=== PATIENT | female | born 1970 | race Hispanic/Latino ===

== ENCOUNTER 2018-11-12 05:29 | Observation (INO) ==
[2018-11-12] MEDS ORDERED: ZOFRAN IV ONE (05:36)
[2018-11-12] MEDS ORDERED: MORPHINE IV ONE (05:36)
[2018-11-12] MEDS ORDERED: NS 1,000 ML IV ONE ×2 (05:36→07:38)
[2018-11-12] MEDS ORDERED: ZOSYN 4.5 GM in NS 100 ML IV ONE ×2 (05:36→06:19)
[2018-11-12] MEDS ORDERED: TORADOL IV ONE (05:36)
--- NOTE | 2018-11-12 06:12 | PROVIDER DOCUMENTATION ---
HPI-Abdominal Pain/GI Problem - General Chief Complaint: Abdominal Pain Stated Complaint: AMBULANCE Time Seen by Provider: 11/12/18 05:33 Source: patient, EMS Allergies/Adverse Reactions: Patient Allergies Allergy/AdvReac Type Severity Reaction Status Date / Time No Known Allergies Allergy Verified 11/12/18 06:57 - History of Present Illness-ABD Nature of Presenting Problems: Sudden onset of severe LAP this evening, associated with N/V/D and hematochezia. Also has chills and body aches, but denies fever. has numbness/tingling to lips and hands and cramps in hands. EMS reported she seemed to lose consciousness several times en route, and that her BP was really low. has never felt this way before. 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 Abdominal Pain Onset Location: reports: RLQ, LLQ, suprapubic Pain Radiation: reports: no radiation Quality of Pain: reports: aching, cramping, sharp, stabbing Severity in ED: reports: severe Onset/Duration: reports: 4-6 hours ago Timing: reports: still present, constant Activities at Onset: reports: sleep Exposure to sick contacts?: Yes (possibly, at [place]) Modifying Factors: improves with: nothing Associated Symptoms: reports: diaphoresis, diarrhea, dizziness, fever/chills, joint pain, malaise, muscle aches, nausea, shortness of breath, vomiting Last BM: this morning Dark Stools Present?: reports: bright red blood Rectal Bleeding: reports: bloody diarrhea Rectal Pain: reports: none Emesis Description: reports: clear Bruising or Bleeding Gums?: No Similar Symptoms Previously?: No Recently seen or treated by another doctor?: No Review of Systems - Adult - REVIEW OF SYSTEMS - ADULT Constitutional: reports: see HPI, chills Eyes: reports: no symptoms reported Ears, Nose, Mouth & Throat: reports: no symptoms reported Cardiovascular: reports: no symptoms reported Respiratory: reports: see HPI, shortness of breath. denies: chronic cough, dyspnea on exertion, excessive sputum production, hemoptysis, pleurisy Gastrointestinal: reports: see HPI, abdominal pain, diarrhea, nausea, rectal bleeding, vomiting Genitourinary: reports: no symptoms reported Musculoskeletal: reports: no symptoms reported Integumentary: reports: no symptoms reported Neurological: reports: no symptoms reported Psychiatric: reports: no symptoms reported Endocrine: reports: no symptoms reported Hematologic/Lymphatic: reports: no symptoms reported Allergic/Immunologic: reports: no symptoms reported All Other Systems: Reviewed and Negative Past History - Adult - PAST MEDICAL HISTORY-ADULT Review of Records: reports: Old Records Reviewed, Nursing Assessment Review, M edications Reviewed, Social history reviewed & non-contributory. Major Childhood Illnesses: reports: denies history Cardiovascular: reports: denies history Respiratory: reports: denies history Gastrointestinal: reports: denies history Obstetrical/Gynecological: reports: denies history Genitourinary: reports: denies history Musculoskeletal: reports: denies history Neurological: reports: denies history Endocrine/Immune: reports: denies history Other Conditions: reports: denies history - PRIOR SURGERIES/PROCEDURES Surgical/Procedure History: reports: BTL - IMMUNIZATION STATUS Childhood Immunizations: UTD Flu Vaccine: UTD - FAMILY HISTORY Family History: reviewed, not pertinent - SOCIAL HISTORY Smoking: non-smoker Substance Use: none/never Alcohol Use Frequency: never Living Situation: family Physical Exam-General - PHYSICAL EXAM-ADULT Initial Vital Signs Reviewed: Yes (VSSAF) - CONSTITUTIONAL General Appearance: alert, moderate distress, anxious, other (hyperventilating) - EYES Eyes: PERRL/EOMI, pink conjunctivae - HEAD, EARS, NOSE, MOUTH & THROAT HENMT: normocephalic/atraumatic, normal ENT inspection, pharynx normal, other (dry mucous membranes) - NECK Neck: non-tender, full range of motion, supple, normal inspection - RESPIRATORY Respiratory: chest non-tender, lungs clear, normal breath sounds, no pleuratic chest pain, no respiratory distress, no accessory muscle use - CARDIOVASCULAR Cardiovascular: normal peripheral pulses, regular rate, rhythm, no edema, no gallop, no JVD, no murmur - GASTROINTESTINAL (ABDOMEN) Abdominal Exam: soft, no organomegaly, no pulsatile mass, abnormal bowel sounds (hyperactive), tenderness (suprapubic, bilateral lower quadrant) - GENITOURINARY Rectal Exam: normal exam, other (heme negative stool) - LYMPHATIC Lymphatic: no adenopathy - MUSCULOSKELETAL Back Exam: normal inspection, no CVA tenderness, no vertebral tenderness Extremity: normal range of motion, non-tender, normal inspection, no pedal edema , no calf tenderness, normal capillary refill - SKIN Integumentary: normal color, normal turgor, warm/dry - NEUROLOGIC 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, grossly normal, no motor/sensory deficits - PSYCHIATRIC Psych/Mental Status: normal thought content, normal thought process, oriented x 3, anxious Progress - PLAN OF CARE/RESULTS Progress/Plan/Lab Results: Vital Signs - 8 hr 11/12/18 05:34 Temperature 97.6 F Pulse Rate 82 Respiratory Rate 18 Blood Pressure 105/69 O2 Sat by Pulse Oximetry 100 Orders Category Date Time Status Finger Stick Blood Sugar (ED) DIRECTED Care 11/12/18 05:33 Active Nursing- Obtain EKG once Care 11/12/18 05:34 Active Saline Loc NOW Care 11/12/18 05:34 Active Straight Catheterization ORDERED Care 11/12/18 05:36 Active CHEST-PORTABLE [RAD] Stat Exams 11/12/18 05:[address] ABD/PELVIS W/IV CONT ONLY [CT] Stat Exams 11/12/18 05:35 Ordered AMYLASE [CHEM] Stat Lab 11/12/18 05:39 Received BLOOD CULTURE [BLDCUL] Stat Lab 11/12/18 05:34 Ordered C DIFF TOXIN [STOOL] Stat Lab 11/12/18 05:59 Ordered CBC WITH ELECTRONIC DIFF [HEME] Stat Lab 11/12/18 05:39 Results COMPREHENSIVE METABOLIC PANEL [CHEM] Stat Lab 11/12/18 05:39 Received LACTATE, PLASMA [CHEM] Stat Lab 11/12/18 05:39 Received LIPASE [CHEM] Stat Lab 11/12/18 05:39 Received MAGNESIUM [CHEM] Stat Lab 11/12/18 05:39 Received OCCULT BLOOD SCREEN STOOL PL Stat Lab 11/12/18 05:57 Ordered PRO B-NATRIURETIC PEPTIDE Stat Lab 11/12/18 05:46 Received PROTIME WITH INR [COAG] Stat Lab 11/12/18 05:39 Received STOOL CULTURE [RM] Routine Lab 11/12/18 05:58 Ordered TROPONIN T Stat Lab 11/12/18 05:[address] W/POSS RFLX CULT [URINALYSIS] Stat Lab 11/12/18 05:59 Ordered 0.9% Sodium Chloride Inj [Ns] 1,000 ml Med 11/12/18 05:36 Active IV 999 mls/hr Ketorolac [Toradol] Med 11/12/18 05:36 Discontinued 30 mg IV NOW ONE Morphine Med 11/12/18 05:36 Discontinued 4 mg IV NOW ONE Ondansetron [Zofran] Med 11/12/18 05:36 Discontinued 4 mg IV NOW ONE Piperacillin/Tazobactam [Zosyn] 4.5 gm Med 11/12/18 05:36 Active 0.9% Sodium Chloride Inj [Ns] 100 ml IV NOW EKG [EKG] Stat Ther 11/12/18 05:34 Ordered Result Diagrams: 11/12/18 05:39 11/12/18 05:39 - REASSESSMENT Reassessment #1 Time Reassessed: 06:27 Status: improving (Given IVF, morphine/ zofran for pain, IV zosyn for possible colitis. Awaiting CT and labs) Reassessment #2 Time Reassessed: 09:17 Status: unchanged (MILD DKA, pH 7.33, ACALCULOUS CHOLECYTITIS, ALSO C/O EAR PAIN AND HEADACHE. 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 REPORTS NEWLY DIAGNSOSED DM: NO PCP AND NO DIABETIC TREATMENT SO FAR.) - EKG 1 Time of EKG reading by physician:: 06:26 EKG Read and Signed by:: Jose Francisco Marsh EKG Interpretation (*Must complete 3 of following elements*): Normal Rate: 72 Rhythm: nsr [place]: normal QRS: normal [place] Interval: normal ST Wave: normal - CHANGE OF SHIFT REPORT (ED Provider) 1 Report Given and Care Transferred to:: Dr. Adorno Time of Transfer: 07:00 Items Pending: Labs, CT/MRI Results Departure - Departure Date of Disposition Decision: 11/12/18 Time of Disposition Decision: 09:25 DIAGNOSIS: Abdominal pain, Nausea vomiting and diarrhea, Acute acalculous cholecystitis, DKA (diabetic ketoacidoses), Lactic acidosis Disposition: ADMITTED INPATIENT 09 Certified Medical Emergency: Emergent Condition: Stable Referrals and Follow-Ups: None,PCP [Primary Care Provider] - - Critical Care Note This patient required my direct & personal management of CC.: No Attestation - Physician/ HERO Attestation Patient care was provided by Advanced Practice Provider:: No The physician spent face to face time with patient:: Yes Advanced Practice Provider documentation review:: Supervising physician onsite and consulted in the evaluation and care of this patient. The physician did have a face to face encounter with the patient.
[2018-11-12 06:15] LABS: OCCULT BLOOD 1 NEGATIVE (NEGATIVE)
[2018-11-12 06:15] LABS: AGAP 13; ALBUMIN 3.9 g/dL (3.5-5.0); ALKALINE PHOSPHATASE 91 U/L (32-104); AMYLASE 42 U/L (20-200); BUN 14 mg/dL (8-22); CALCIUM 8.8 mg/dL (8.8-10.2); CHLORIDE 102 mmol/L (98-107); COSMO 287; CREATININE 0.7 mg/dL (0.5-0.9); ESTIMATED GFR > 60; GLUCOSE 232 mg/dL (70-104); GOT 35 U/L (10-30); GPT 45 U/L (10-36); LIPASE 59 U/L (13-60); MAGNESIUM 1.7 mg/dL (1.5-2.7); POTASSIUM 3.4 mmol/L (3.5-5.1); SODIUM 140 mmol/L (136-145); TCO2 25 mmol/L (25-35); TOTAL PROTEIN 6.6 g/dL (6.3-8.3)
[2018-11-12 06:28] LABS: INR 0.97; PROTIME 13.4 Seconds (11.0-16.0)
[2018-11-12 06:34] LABS: EOS# 0.07 X1000 (0.0-0.7); HEMATOCRIT 40.8 % (37.0-47.0); HEMOGLOBIN 13.4 g/dL (12.0-16.0); LYMPH% 68.8 % (20.5-51.1); MCHC 33.4 g/dL (33-37); MCV 83.6 FL (81-99); MONO# 0.21 X1000 (0.11-0.59); MONO% 3.5 % (1.7-9.3); MPV 9.1 FL (7.4-10.4); NEUT# 1.57 X1000 (1.4-6.5); NEUT% 26.3 % (42.2-75.2); PLT 400 X1000 (130-400); RBC 4.83 XMIL (4.2-5.4); RDW 14.9 % (11.5-14.5); WBC 5.96 X1000 (4.8-10.8)
[2018-11-12 07:03] LABS: URINE BACTERIA NEGATIVE /HFP; URINE EPITHELIAL CELLS <10 /HPF (<10); URINE RBC <10 /HPF (<10); URINE SOURCE CATH; URINE WBC <10 /HPF (<10)
[2018-11-12 07:04] LABS: BILIRUBIN URINE NEGATIVE (NEGATIVE); BLOOD URINE NEGATIVE (NEGATIVE); CLARITY CLEAR (CLEAR); COLOR YELLOW; KETONE URINE 1+(Small) mg/dL (NEGATIVE); LEUKOCYTES URINE TRACE (NEGATIVE); NITRITE URINE NEGATIVE (NEGATIVE); PH URINE 6.5; UROBILINOGEN URINE NORMAL
--- NOTE | 2018-11-12 07:23 | Diag Imaging Result Doc PS360 ---
EXAM: CT ABD/PELVIS W/IV CONT ONLY HISTORY: colitis TECHNIQUE: CT abdomen and pelvis with intravenous contrast COMPARISON: None. FINDINGS: There is fatty infiltration of the liver. The gallbladder is distended. No calcified stones. Normal pancreas, spleen, adrenal glands, and kidneys. No hydronephrosis. Normal aorta. Normal appendix. No abscess. No inflammation about the colon. No colonic wall thickening. There are small fibroids within the uterus. The largest measures approximately 3.2 cm. Neither ovary is enlarged. Urinary bladder is not distended. IMPRESSION: 1.No CT evidence of colitis 2.Uterine fibroids 3.There is fatty infiltration of the liver 4.Distended gallbladder. A gallbladder ultrasound is recommended if there is clinical suspicion for cholecystitis. This exam was performed using automated exposure control, adjustment of mA or kV according to patient size, and/or use of iterative reconstruction technique. Electronically signed by Moreno Diallo 11/12/2018 7:21 AM
--- NOTE | 2018-11-12 07:29 | EKG Report ---
Test Performed on : 11/12/2018 06:20:50 AM Test Reason : sob Blood Pressure : / mmHG Vent. Rate : 072 BPM Atrial Rate : 072 BPM P-R Int : 130 ms QRS Dur : 078 ms QT Int : 430 ms P-R-T Axes : 010 074 047 degrees QTc Int : 470 ms Normal sinus rhythm. Normal ECG No previous ECGs available Unconfirmed Result
--- NOTE | 2018-11-12 07:35 | Diag Imaging Result Doc PS360 ---
EXAM: CHEST-PORTABLE HISTORY: lower abdominal pain, SOB TECHNIQUE: Chest single view COMPARISON: None. FINDINGS: The lungs are well expanded. The heart is not enlarged. The vessels are not distended. There are no infiltrates. No effusion identified. IMPRESSION: Negative exam. Electronically signed by Moreno Diallo 11/12/2018 7:33 AM
[2018-11-12] MEDS ORDERED: KLOR-CON PO ONE (07:38)
[2018-11-12 08:16] LABS: BLOOD TYPE ARTERIAL; SAMPLE BLOOD
[2018-11-12 08:17] LABS: BE -2.4 mmoll (-3.0-3.0); METHB 1.2 % (0.0-1.5); O2(CT) 16.5 mL/dL (15.0-23.0); O2HB 94.3 % (95.0-99.0); PCO2(98.6) 45 mmHg (35-45); PO2(98.6) 78 mmHg (60-100); SAO2 97.8 % (95.0-100.0); THB 12.4 g/dL (11.5-17.4); pH(98.6) 7.33 (7.35-7.45)
--- NOTE | 2018-11-12 08:19 | Diag Imaging Result Doc PS360 ---
EXAM: US GB < RUQ (LIMITED) HISTORY: ruq pain TECHNIQUE: Right upper quadrant ultrasound COMPARISON: CT from 7:12 AM FINDINGS: Normal pancreas. No aortic aneurysm. Normal inferior vena cava. There is fatty infiltration of the liver. Normal right kidney. No hydronephrosis. The gallbladder is distended. The pericholecystic fluid with thickening of the wall. No stones. IMPRESSION: Distended gallbladder with pericholecystic fluid/thickening of the wall suspicious for acalculous cholecystitis. Electronically signed by Moreno Diallo 11/12/2018 8:17 AM
[2018-11-12 08:21] LABS: ALLEN TEST YES; MODALITY ROOM AIR
[2018-11-12] MEDS ORDERED: NS + KCL 20 MEQ 1,000 ML IV ONE (09:23)
[2018-11-12] MEDS ORDERED: ROCEPHIN 1 GM in NS 50 ML IV ONE (09:24)
[2018-11-12 11:50] LABS: HEMOGLOBIN A1C 9.1 % (4.8-6.0)
--- NOTE | 2018-11-12 12:18 | HISTORY AND PHYSICAL ---
PRIMARY CARE PHYSICIAN: None. CHIEF COMPLAINT: Severe right and left lower quadrant and suprapubic abdominal pain, along with some right upper quadrant abdominal pain with associated nausea/vomiting, diarrhea, and hematochezia. HISTORY OF PRESENTING ILLNESS: This is a 48-year-old female, who presents to [facility] ER, but does not speak Beninese. Her is at the bedside and is interpreting for her. States that she has been having severe right and left lower quadrant abdominal pain, suprapubic abdominal pain, and right upper quadrant abdominal pain that began last night with some associated nausea/vomiting, diarrhea, hematochezia, chills, and body aches. She came by EMS, who state that she lost consciousness several times en route and that her blood pressure was low. When she arrived, her blood pressure was 105/69. Her workup showed negative stool for occult blood, negative C difficile. She did have a bump in her blood sugar at 232 with no previous history of diabetes. Her acetone level was negative. She had a CT of the abdomen and pelvis that showed a distended gallbladder, and a gallbladder ultrasound was recommended. We did the right upper quadrant abdominal ultrasound. That showed a distended gallbladder with reno cholecystic fluid and thickening of the wall suspicious for an acalculous cholecystitis so she will be admitted to the [facility] for further evaluation and treatment and surgical consultation. PAST MEDICAL HISTORY: None. PAST SURGICAL HISTORY: A bilateral tubal ligation. FAMILY HISTORY: Reviewed and noncontributory. SOCIAL HISTORY: She currently lives with family. Denies any tobacco, alcohol, or illicit drug use. ALLERGIES: No known allergies. HOME MEDICATIONS: She does not take any medications on a routine basis. DIAGNOSTIC STUDIES: Laboratory data showed a white blood cell count of 5.96, hemoglobin 13.4, hematocrit 40.8, platelets 400,000. PT 13.4, INR 0.97. ABG with a pH of 7.33, pCO2 of 45, PO2 of 78, bicarbonate 23 on room air. Sodium 140, potassium 3.4, chloride 102, CO2 of 25, BUN of 14, creatinine 0.7, glucose of 232. Magnesium 1.7. Troponin was negative. ProBNP of 28. Amylase of 42, lipase 59. Plasma lactate of 2.4. Urinalysis was negative. Stool for occult blood was negative. Stool for Clostridium difficile toxin was negative. Acetone level was negative. CT of the abdomen and pelvis showed no CT evidence of colitis. Uterine fibroids. There was a fatty infiltration of the liver and a distended gallbladder and a gallbladder ultrasound was recommended if suspicion for cholecystitis. We did a right upper quadrant abdominal ultrasound that showed a distended gallbladder with pericholecystic fluid and thickening of the wall suspicious for acalculous cholecystitis. Chest x-ray showed a negative exam. EKG showed normal sinus rhythm. REVIEW OF SYSTEMS: She denied any fever. She was positive for chills, body aches. Denied any chest pain, coughing, shortness of breath. She had right and left lower quadrant and suprapubic abdominal pain and right upper quadrant abdominal pain with nausea/vomiting, diarrhea, and hematochezia. She denied any burning or hurting with urination. PHYSICAL EXAMINATION: VITAL SIGNS: On arrival she had a temperature of 97.6 degrees, pulse 82, respirations 18, blood pressure 105/69, saturating 100% on room air. GENERAL: This is a 48-year-old female, lying in the bed. Again does not speak any Beninese, but her was at the bedside to translate. HEMNT: Normocephalic, atraumatic. Normal ENT inspection. Oropharynx and nares are clear. EYES: Pupils are equal, round, and reactive to light and accommodation. Extraocular movements are intact. NECK: Normal inspection. Normal range of motion. LUNGS: Clear to auscultation bilaterally with equal lung expansion and chest wall movement. HEART: With regular rate and rhythm. No murmurs, rubs, or gallops. ABDOMEN: Soft. Tenderness to bilateral lower quadrants, right upper quadrant. Bowel sounds are present x4 quadrants. MUSCULOSKELETAL: She had 5/5 strength x4 extremities. NEUROLOGICAL: The cranial nerves 2-12 appear grossly intact. ASSESSMENT: 1. Acalculous cholecystitis. 2. New onset of diabetes, type 2. PLAN: She will be transferred to the [facility]. Placed on telemetry. She will be held n.p.o. We will consult General Surgery. Place her on patterned blood sugars with sliding scale insulin. We are checking a hemoglobin A1c; those results are pending. Normal saline at 125 mL an hour. Morphine 4 mg IV q.4 h. p.r.n. Urine culture is pending. We will apply SCDs for DVT prophylaxis. Further orders after seen by attending and consultants. Dictated by ROMIE Diez for Aayush Vincent MD cc: ROMIE Diez MD
[2018-11-12] MEDS ORDERED: ZOFRAN IV PRN (13:09)
[2018-11-12] MEDS: NS 1,000 ML IV SCH ×2 (14:32→23:01)
[2018-11-12] MEDS: HUMALOG SUBQ SCH ×2 (16:53→22:49)
--- NOTE | 2018-11-12 21:38 | GENERAL SURGERY CONSULTATION ---
DATE: 11/12/2018 REASON FOR CONSULTATION: Acalculous cholecystitis. HISTORY OF PRESENT ILLNESS: This is a 48-year-old female who was awakened acutely this morning at 4 a.m. with right upper abdominal pain that radiated around into her back. This has been persistent throughout the day. However, currently it is not hurting as bad. She is having some epigastric pain. It has been relieved some with medicine in the hospital. No exacerbating factors. She has not tried to eat anything. She has had no similar episodes in the past. She did report some nausea and vomiting this morning. No fever or chills. No diarrhea or constipation. She also does note some dysuria. PAST MEDICAL HISTORY: Diabetes. HOME MEDICATIONS: None. ALLERGIES: No known drug allergies. PAST SURGICAL HISTORY: Bilateral tubal ligation. FAMILY HISTORY: Her sister had gallbladder disease. Otherwise unremarkable. SOCIAL HISTORY: Negative for tobacco, alcohol or illicit drug use. REVIEW OF SYSTEMS: Ten systems reviewed and negative except as noted above in HPI. PHYSICAL EXAMINATION: Vital Signs: Temperature 99.1 degrees, pulse 67, respirations 18, blood pressure 119/57. General: She is a well-developed, well-nourished female in no distress who looks her stated age. Neuro: Alert, oriented x4. Cranial nerves 2-12 grossly intact. Moves all extremities equally and well. HEENT: Normocephalic, atraumatic. Extraocular muscles intact. Pupils equal, round, reactive to light. Sclerae anicteric. Moist mucous membranes. Neck: Supple. No thyromegaly. CV: Regular rate and rhythm. Respiratory: Bilateral equal breath sounds. Gastrointestinal: Soft, nondistended. No organomegaly or mass. She has mild tenderness in her right abdomen with palpation on her left abdomen. No rebound or guarding. No hernias appreciated. Extremities: No clubbing, cyanosis, or edema. Skin: Warm and dry. No rash. LABORATORY: White blood cell count normal, hemoglobin and hematocrit normal. Electrolytes reviewed, notable for glucose of 232, AST 35, ALT 45, alkaline phosphatase 91, total bilirubin 0.7, amylase 42, lipase 59. Serum lactate 1.7. Urinalysis noted for 3+ protein, 1+ ketones, trace white blood cells, negative bacteria, negative nitrite. Stool occult blood is negative. C difficile toxin in the stool was negative. IMAGING: Abdominal and pelvis CT scan revealed a distended gallbladder. However, there was no obvious pericholecystic fluid or wall thickening or stones. There was no biliary ductal dilation. ASSESSMENT/PLAN: Abdominal pain of unclear etiology. It could be biliary colic secondary to biliary dyskinesia. I do not think she has true acalculous cholecystitis as she is nontoxic and does not have any risk factors. We will check a HIDA scan tomorrow if she continues to have symptoms. I will let her have clear liquids tonight. If she significantly improves overnight we may consider discharge and outpatient followup with a HIDA scan. cc: Carl Jones MD MTDD
--- NOTE | 2018-11-12 21:49 | HISTORY AND PHYSICAL ---
ADDENDUM: Patient seen and examined by myself. Full note dictated and discussed with nurse practitioner. Patient presented to the hospital with abdominal pain, diagnosed with acalculous cholecystitis. She does have new onset diabetes. We will need to adjust her blood sugar control. Given her gallbladder disease, we are going to admit her to the hospital, transfer her to [facility] and ask Surgery to evaluate and treat. Further orders as needed. cc: Aayush Vincent MD
[2018-11-13] MEDS: MORPHINE IV PRN ×2 (04:52→10:02)
[2018-11-13 06:13] LABS: BASO# 0.01 X1000 (0.0-0.2); BASO% 0.2 % (0.0-0.8); EOS# 0.13 X1000 (0.0-0.7); HEMATOCRIT 33.3 % (37.0-47.0); HEMOGLOBIN 10.7 g/dL (12.0-16.0); LYMPH# 1.91 X1000 (1.2-3.4); LYMPH% 29.6 % (20.5-51.1); MCH 27.4 PG (27-31); MCHC 32.1 g/dL (33-37); MCV 85.4 FL (81-99); MONO# 0.26 X1000 (0.11-0.59); MPV 9.4 FL (7.4-10.4); NEUT# 4.15 X1000 (1.4-6.5); NEUT% 64.2 % (42.2-75.2); PLT 272 X1000 (130-400); WBC 6.46 X1000 (4.8-10.8)
[2018-11-13 06:24] LABS: AGAP 7; ALB/GLOB RATIO 1.3; ALBUMIN 3.3 g/dL (3.5-5.0); ALKALINE PHOSPHATASE 66 U/L (32-104); BUN 10 mg/dL (8-22); CALCIUM 7.4 mg/dL (8.8-10.2); CHLORIDE 110 mmol/L (98-107); COSMO 284; CREATININE 0.4 mg/dL (0.5-0.9); ESTIMATED GFR > 60; GLUCOSE 163 mg/dL (70-104); GOT 25 U/L (10-30); GPT 38 U/L (10-36); POTASSIUM 3.8 mmol/L (3.5-5.1); SODIUM 141 mmol/L (136-145); TCO2 24 mmol/L (25-35); TOTAL BILIRUBIN 0.55 mg/dL (0.20-1.00); TOTAL PROTEIN 5.8 g/dL (6.3-8.3)
[2018-11-13] MEDS: HUMALOG SUBQ SCH ×4 (06:44→22:37)
[2018-11-13] MEDS ORDERED: PNEUMOVAX 23 IM ONE (08:01)
--- NOTE | 2018-11-13 08:50 | GENERAL SURGERY PROGRESS NOTE ---
DATE: 11/13/2018 SUBJECTIVE: The patient reports some epigastric pain and sort of substernal tightness with mild nausea. She did drink clear liquids last night without any apparent problems. OBJECTIVE: Vital Signs: She is afebrile. Vital signs are stable. General: She is awake, alert, no acute distress. Gastrointestinal: Soft, nondistended. She is tender in the epigastrium and right upper quadrant without rebound or guarding. No organomegaly or mass appreciated. LABORATORY: CBC and metabolic profile reviewed and unremarkable. ASSESSMENT AND PLAN: A 48-year-old female with upper abdominal pain and nausea, possible acalculous cholecystitis. We will pursue a HIDA scan today to check for cystic duct patency and possibly severe biliary dyskinesia. If either one is positive, then we would proceed with laparoscopic cholecystectomy this admission. However, if she has a patent cystic duct, and normal ejection fraction, we will continue observation today and allow her to eat to see how she feels. In my opinion, the ultrasound and CT findings are marginal for acalculous cholecystitis. cc: Carl Jones MD
[2018-11-13] MEDS: NS 1,000 ML IV SCH (10:05)
--- NOTE | 2018-11-13 12:18 | PROGRESS NOTE ---
DATE: 11/13/2018 SUBJECTIVE: The patient reports feeling much better. Denies any fever or chills. OBJECTIVE: Vital Signs: Temperature 98.4 degrees, heart rate 61, respiratory rate 18, blood pressure 117/62, O2 saturation 97% on room air. General: This is a 48-year-old female, lying in bed, in no acute distress. Cardiovascular: S1, S2 heard. No murmurs, gallops, or rubs. Regular rate and rhythm. Respiratory: Clear bilaterally to auscultation. No work of breathing or using accessory muscles. Abdomen: Soft. Mildly tender to palpation in the right upper quadrant but there is no rebound or Green's sign. No signs of peritoneal irritation. Extremities: No clubbing, cyanosis, or edema. Peripheral pulses present in both legs. Neurological: Patient alert, oriented x3. Moves 4 extremities. LABORATORY DATA: Reviewed. ASSESSMENT AND PLAN: 1. Acalculous cholecystitis. Patient has been evaluated by General Surgery. They are ordering a HIDA scan to confirm if there is any biliary dyskinesia and if that is the case patient will need to have cholecystectomy. If not they will continue to monitor. At this point, we will follow recommendations. We will continue with IV fluids and pain medication as well. 2. New onset diabetes mellitus type 2. We will continue with sliding scale insulin. Accu-Chek before meals and also at bedtime. Hemoglobin A1c is elevated. We will continue to monitor. cc: Fab Ruby MD
[2018-11-13] MEDS ORDERED: VANCOMYCIN IV PER PHARMACY MISC SCH (15:15)
[2018-11-13] MEDS ORDERED: VANCOMYCIN 1.5 GM in NS 250 ML IV SCH (17:00)
--- NOTE | 2018-11-13 18:37 | Diag Imaging Result Doc PS360 ---
EXAM: HIDA SCAN W/ EJECTION FRACTION HISTORY: abdominal pain, possible acalculous cholecystitis TECHNIQUE: Nuclear medicine HIDA scan with gallbladder ejection fraction COMPARISON: None. FINDINGS: 5.3 mCi Choletec administered. There is normal uptake within the liver. Normal filling of the gallbladder. Normal emptying into the small bowel. Ensure was given to determine the gallbladder ejection fraction. There is no appreciable emptying at 60 minutes. IMPRESSION: Abnormal exam with no appreciable emptying at 60 minutes. Electronically signed by Moreno Diallo 11/13/2018 6:35 PM
--- NOTE | 2018-11-13 21:04 | GENERAL SURGERY PROGRESS NOTE ---
DATE: 11/13/2018 SUBJECTIVE: This evening the patient reports some left upper quadrant pain that also is in her left back, and radiates around to the right side of her back. It is not severe, but has remained throughout most of the day. She has had a little nausea, no vomiting. During her HIDA scan test she did have pain that was reproduced as described above. OBJECTIVE: Her vital signs are unchanged and essentially normal. Physically, her abdomen is soft and minimally tender. IMAGING: Her HIDA scan showed a 0% ejection fraction after 60 minutes. ASSESSMENT AND PLAN: A 48-year-old female with severe biliary dyskinesia, essentially an akinetic gallbladder. This is almost certainly the cause of her current symptoms. We recommend laparoscopic cholecystectomy with cholangiogram tomorrow. I went over the risks and benefits with her including bleeding, infection, injury to surrounding organs such as the intestines or bile duct and other imponderables. She understands and agrees to proceed. cc: Carl Jones MD
[2018-11-14] MEDS: NS 1,000 ML IV SCH (00:14)
[2018-11-14 05:56] LABS: BASO# 0.01 X1000 (0.0-0.2); BASO% 0.2 % (0.0-0.8); EOS# 0.16 X1000 (0.0-0.7); EOS% 2.9 % (0.0-10.0); HEMATOCRIT 33.8 % (37.0-47.0); LYMPH% 39.9 % (20.5-51.1); MCH 27.5 PG (27-31); MCHC 32.5 g/dL (33-37); MCV 84.5 FL (81-99); MONO# 0.37 X1000 (0.11-0.59); MONO% 6.7 % (1.7-9.3); MPV 9.3 FL (7.4-10.4); NEUT# 2.78 X1000 (1.4-6.5); NEUT% 50.3 % (42.2-75.2); PLT 271 X1000 (130-400); RDW 14.7 % (11.5-14.5); WBC 5.52 X1000 (4.8-10.8)
[2018-11-14 06:30] LABS: AGAP 10; ALB/GLOB RATIO 1.2; ALBUMIN 3.4 g/dL (3.5-5.0); ALKALINE PHOSPHATASE 67 U/L (32-104); BUN 7 mg/dL (8-22); CALCIUM 8.4 mg/dL (8.8-10.2); CHLORIDE 106 mmol/L (98-107); COSMO 281; CREATININE 0.5 mg/dL (0.5-0.9); ESTIMATED GFR > 60; GLUCOSE 125 mg/dL (70-104); GOT 24 U/L (10-30); GPT 37 U/L (10-36); POTASSIUM 3.7 mmol/L (3.5-5.1); SODIUM 141 mmol/L (136-145); TCO2 25 mmol/L (25-35); TOTAL BILIRUBIN 0.39 mg/dL (0.20-1.00); TOTAL PROTEIN 6.3 g/dL (6.3-8.3)
[2018-11-14] MEDS: HUMALOG SUBQ SCH (07:03)
[2018-11-14] MEDS ORDERED: KEFZOL 1 GM/D5W 1 GM/50 ML IVPB IV ONE (07:42)
[2018-11-14] MEDS ORDERED: SENSORCAINE 0.25%/EPI 1:200,000 ONE (07:56)
[2018-11-14] MEDS ORDERED: SODIUM CHLORIDE 0.9% ONE ×2 (07:56→09:46)
[2018-11-14] MEDS ORDERED: LR 1,000 ML ONE (07:57)
--- NOTE | 2018-11-14 08:01 | GENERAL SURGERY PROGRESS NOTE ---
DATE: 11/14/2018 SUBJECTIVE: She has a little pain in her abdomen but otherwise is doing fine overnight. OBJECTIVE: She is afebrile. Vital signs are stable. General: She is awake, alert, and oriented x3. No acute distress. Gastrointestinal: Soft. Minimally tender. Nondistended. Laboratory: White blood cell count normal. Metabolic profile reviewed and unremarkable. Microbiology: Urine culture is negative. Stool culture was negative. Blood culture is one out of two positive for gram-positive rods. ASSESSMENT AND PLAN: A 48-year-old female with severe biliary dyskinesia. She is symptomatic and we have recommended laparoscopic cholecystectomy today. I went over the risks and benefits with her last night. I believe her blood culture is a contaminant. I will stop the vancomycin. We will give her a dose of Kefzol in the operating room. If she does well with surgery, then she will go home later today. cc: Carl Jones MD
[2018-11-14] MEDS ORDERED: FENTANYL ONE (09:16)
[2018-11-14] MEDS ORDERED: VERSED ONE (09:16)
[2018-11-14] MEDS ORDERED: PEPCID ONE (09:31)
--- NOTE | 2018-11-14 10:33 | Diag Imaging Result Doc PS360 ---
OPERATIVE CHOLANGIOGRAM - 11/14/2018 INDICATION: CHOLECYSTECTOMY TECHNIQUE: The exam was performed by the patient's surgeon. One image was obtained. COMPARISON: None FINDINGS: Contrast was infused into the cystic duct. This outlines normal hepatic and common bile ducts. There is good passage of contrast into the duodenum. IMPRESSION: No complication. Electronically signed by Reggie Kinney 11/14/2018 10:31 AM
--- NOTE | 2018-11-14 11:05 | OPERATIVE NOTE ---
PROCEDURE DATE: 11/14/2018 PREOPERATIVE DIAGNOSIS: Severe biliary dyskinesia. POSTOPERATIVE DIAGNOSIS: Severe biliary dyskinesia. PROCEDURE PERFORMED: Laparoscopic cholecystectomy with operative cholangiogram. SURGEON: Carl Jones M.D. RN HEMODIALYSIS: BEATRICE Sesay. ANESTHESIA: General. ESTIMATED BLOOD LOSS: 5 mL. COMPLICATIONS: None apparent. SPECIMENS: Gallbladder. FINDINGS: The gallbladder was distended, but not acutely inflamed. The cholangiogram revealed normal proximal hepatic radicles as well as distal common bile duct. There was flow of contrast seen in the duodenum. No filling defects or stenoses were appreciated. DESCRIPTION OF PROCEDURE: The patient was brought to the operating room and placed supine on the table. General anesthesia was induced. She was prepped and draped in the usual sterile fashion. Then, 0.25% Marcaine with epinephrine was used to anesthetize our incisions. An 11 mm incision was made below the umbilicus. The fascia was exposed and incised sharply. Entry into the peritoneal cavity was obtained under direct vision with the Optiview device. Pneumoperitoneum was established. The camera was inserted. There was no evidence of injury to underlying structures. She was placed in reverse Trendelenburg and left rotation. Three 5 mm incision ports were placed under direct vision across the epigastrium and right upper quadrant per usual routine. The dome of the gallbladder was grasped by the political science research assistant with an Allis clamp, and lifted up superiorly. The triangle of Calot was then dissected out with the [place] forceps and hook cautery until the critical view was obtained. The gallbladder/liver junction was seen. There were only two structures entering the gallbladder, the cystic duct and cystic artery. The duct was clipped on the distal side, and a ductotomy was made proximal to this with scissors. A 14-gauge Angiocath was passed through the right upper quadrant. The Taut cholangiogram catheter was passed through this, into the cystic duct, and held in place with a clip. The cholangiogram was performed with findings as noted above. The clip, catheter, and Angiocath were removed. Two clips were placed on the proximal cystic duct, and it was divided with scissors. The cystic artery had an anterior and posterior branch entering the gallbladder. Each branch was clipped proximally and distally, and incised in between with scissors. The gallbladder was removed from the liver bed using hook cautery, obtaining hemostasis along the way after it was removed. The liver bed was examined. There was no further bleeding. There was no bile leakage. I washed out the old blood, and suctioned it out. The gallbladder was brought out through the umbilical port site. Some bile did leak through the gallbladder at the umbilical incision. There were no stones noted. We desufflated the abdomen and removed the ports. I irrigated out the umbilical incision thoroughly, and then closed the umbilical fascia with a [id number] 0 Vicryl. The skin was closed with 4- 0 subcuticular Monocryl and Steri-Strips. There were no apparent complications. She was awakened in stable condition, and transferred to the recovery room. cc: Carl Jones MD
[2018-11-14] MEDS ORDERED: TORADOL ONE (11:08)
[2018-11-14] MEDS ORDERED: NS 1,000 ML IV SCH (11:23)
[2018-11-14] MEDS ORDERED: NORCO-10 PO PRN (11:23)
[2018-11-14 16:20] VITALS: BP 120/71
--- NOTE | 2018-11-14 18:01 | DISCHARGE SUMMARY ---
ADMISSION DATE: 11/12/2018 DISCHARGE DATE: 11/14/2018 DISCHARGE DIAGNOSES: 1. Acalculous cholecystitis status post laparoscopic cholecystectomy. 2. New-onset diabetes mellitus type 2. CONSULTATIONS: Dr. Carl Jones from General Surgery. PROCEDURES: 1. Abdomen and pelvis CT showed no evidence of colitis. Uterine fibroids. Fatty infiltration of the liver and a distended gallbladder. A gallbladder ultrasound was recommended if there is a clinical suspicion for cholecystitis. 2. Abdominal ultrasound showed distended gallbladder with pericholecystic fluid and thickening of the wall suspicion for acalculous cholecystitis. 3. HIDA scan showed abnormal exam with no appreciable emptying at 60 minutes. 4. Laparoscopic cholecystectomy with operative cholangiogram performed by Dr. Jones. That surgery was secondary to severe biliary dyskinesia. HOSPITAL COURSE: This is a 48-year-old female who presented to the Emergency Department of [facility] complaining of severe right on the left lower quadrant abdominal pain. Workup in the ER revealed that the gallbladder was distended. So for clinical suspicion for cholecystitis, we performed an abdominal ultrasound with results as above. Also, she was found out to have new-onset diabetes with elevated blood sugars above 200 and hemoglobin A1c of 9.1. Dr. Jones from general surgery was consulted. He ordered the HIDA scan with results as above. Decision was made to take this patient to the OR to do laparoscopic cholecystectomy. Patient tolerated procedure well. Same day of discharge, general surgery cleared this patient for discharge. The patient is more awake and alert from anesthesia. Pain is under control. At this point, we are going to discharge this patient in stable condition. DISCHARGE PHYSICAL EXAMINATION: Vital Signs: Temperature 98.4 degrees, heart rate 58, respiratory rate 20, blood pressure 120/71, O2 saturations 97% on room air. General: This is a 48-year-old female, lying in bed, in no acute distress. Cardiovascular: S1, S2 heard. No murmurs, gallops, or rubs. Regular rate and rhythm. Respiratory: Clear bilaterally to auscultation. No work of breathing or using accessory muscles. Abdomen: Soft, mildly tender to palpation in the right upper quadrant. No signs of peritoneal irritation. Extremities: No clubbing, cyanosis, or edema. Peripheral pulses present in both legs. Neurologic: Patient is alert and oriented x3. Moves all 4 extremities. DISCHARGE DISPOSITION: 1. Home to self-care. 2. Follow up with Dr. Jones in a week. MEDICATIONS: 1. [place] 5 mg 1 tablet p.o. q.4 hours p.r.n. 2. Metformin 500 mg as directed. Half a tab p.o. daily for a week. One tab p.o. daily for a week. Two tablets p.o. b.i.d. daily continuously. cc: Fab Ruby MD
[2018-11-14] MEDS ORDERED: NORCO-10 PO ONE (18:44)
== END 2018-11-14 18:51 | disposition home or self-care (01) ==
LOC: EDBD → P.ED 05:29 → INTOOBSV 05:30 → SUATTDRO 05:30 → 4N 11:52
PROVIDERS: ATTEND Internal Medicine